=== PATIENT | female | born 1990 | race Caucasian/White ===

== ENCOUNTER → 2020-07-18 | Outpatient (CLI) | payer MEDICARE, OTHER | LOC: HEART 5 07-16 14:00 | DX: R00.2 Palpitations (principal); Z86.79 Personal history of other diseases of the circulatory system ==

== ENCOUNTER → 2020-08-02 | Outpatient (CLI) | payer MEDICARE, OTHER | LOC: ECHO 11:00 | DX: I42.0 Dilated cardiomyopathy (principal) | CPT/HCPCS: ECHO; 93306 ==